=== PATIENT | female | born 1970 | race African-American/Black ===

== ENCOUNTER → 2017-03-06 | Outpatient (CLI) | payer MEDICAID ==
[~2017-03-06] MED LIST: ASPI-1159 PO; ATOR20TA PO; PLAVIX PO; RANI300T7 PO; REGADENOSON 0.4 MG/5 ML IV ONE
== END | disposition home or self-care (01) ==
LOC: NM 06:45
PROVIDERS: ATTEND Internal Medicine Cardiovascular Disease
DX: R07.9 Chest pain, unspecified (principal)
CPT/HCPCS: 78452; 93017; A9500; J2785

== ENCOUNTER 2018-06-08 07:18 | Day surgery (SDC) | payer MEDICAID ==
[~2018-06-08] VITALS: Ht 165.1 cm; Wt 88.5 kg
[~2018-06-08 07:18] MED LIST changes: -REGADENOSON 0.4 MG/5 ML IV ONE
[2018-06-08] MEDS ORDERED: AMLO5TAB88 MT (08:15)
[2018-06-08] MEDS ORDERED: CLON0.1T PO (08:15)
[2018-06-08] MEDS ORDERED: ISOS30TA6 MT (08:15)
[2018-06-08] MEDS ORDERED: TIOT18CA3 INH (08:15)
[2018-06-08] MEDS ORDERED: FLUT1BLS IH (08:15)
[2018-06-08] MEDS ORDERED: P20 PO (08:15)
[2018-06-08] MEDS ORDERED: METO-396 MT (08:15)
[2018-06-08 08:59] LABS: HEMATOCRIT 44.3 % (36.0-48.0); HEMOGLOBIN 15.1 g/dL (12.0-16.0); MEAN CORPUSCULAR HEMOGLOBIN 30.8 pg (28.0-32.0); MEAN CORPUSCULAR VOLUME 90.1 fL (81.0-99.0); PLATELET 223 x1000/uL (130-400); RED BLOOD CELL COUNT 4.91 mill/uL (4.2-5.4); RED CELL DISTRIBUTION WIDTH 13.8 % (11.6-14.6)
[2018-06-08 09:00] LABS: CHLORIDE 112 mEq/L (98-107)
[2018-06-08 09:04] LABS: PARTIAL THROMBOPLASTIN TIME 34.2 sec (23.4-31.0); PROTHROMBIN TIME 9.7 sec (9.1-11.1)
[2018-06-08] MEDS ORDERED: IODIXANOL 320MG/ML 100 ML BOTTLE IV ONE (09:13)
[2018-06-08] MEDS ORDERED: LIDOCAINE HCL 1% 20ML VIAL (Pyxis) INJ ONE ×2 (09:13→09:50)
[2018-06-08] MEDS ORDERED: MIDAZOLAM HCL 2 MG/2 ML VIAL ONE (09:24)
[2018-06-08] MEDS ORDERED: FENTANYL CITRATE/PF 50MCG/ML 2ML VIAL ONE (09:25)
[2018-06-08] MEDS ORDERED: ASPIRIN/SOD BICARB/CITRIC ACID 324MG TAB EFF ONE (09:31)
[2018-06-08] MEDS ORDERED: ACETAMINOPHEN 325MG TABLET PO PRN (10:15)
[2018-06-08] MEDS ORDERED: HEPARIN SODIUM 1,000 UNIT/1ML VIAL IV ONE (14:28)
[2018-06-08] MEDS ORDERED: NICARDIPINE 100MCG/ML 10ML VIAL (CATH LAB) IV ONE (15:25)
[2018-06-08] MEDS ORDERED: NITROGLYCERIN 50MCG/ML 10ML VIAL (CATH LAB) IV ONE (15:25)
== END 2018-06-08 16:40 | disposition home or self-care (01) ==
LOC: CCL 07:18
PROVIDERS: ATTEND Internal Medicine Cardiovascular Disease
DX: I25.119 Atherosclerotic heart disease of native coronary artery with unspecified angina pectoris (principal); E78.5 Hyperlipidemia, unspecified; F17.210 Nicotine dependence, cigarettes, uncomplicated; R06.02 Shortness of breath; J44.9 Chronic obstructive pulmonary disease, unspecified; I10 Essential (primary) hypertension; Z95.5 Presence of coronary angioplasty implant and graft; Z98.51 Tubal ligation status; Z98.890 Other specified postprocedural states; Z79.899 Other long term (current) drug therapy; Z79.82 Long term (current) use of aspirin
CPT/HCPCS: 36415; 80048; 85027; 85610; 85730; 93458; 99152; C1760; C1887; J1644; J2250; J3010; J3490; Q9967; C1769; C1893

== ENCOUNTER 2019-01-21 12:28 | Inpatient (IN) | payer MEDICAID ==
[~2019-01-21] VITALS: Ht 162.6 cm; Wt 90.7 kg
[~2019-01-21 12:28] MED LIST changes: +AMLO5TAB88 MT; -ASPI-1159 PO; +ASPI-1393 PO; +CLON0.1T PO; +FLUT1BLS IH; +ISOS30TA6 MT; +METO-396 MT; +P20 PO; +TIOT18CA3 INH
[2019-01-21] MEDS ORDERED: SODIUM CHLORIDE 0.9% 1,000 ML IV ONE (13:25)
[2019-01-21 13:45] LABS: BASOPHILS % 1.3 % (0.0-2.0); HEMATOCRIT. 43.6 % (36.0-48.0); HEMOGLOBIN. 14.7 g/dL (12.0-16.0); LYMPHOCYTES % 35.2 % (20.0-50.0); MEAN CORPUSCULAR HEMOGLOBIN 30.6 pg (28.0-32.0); MEAN CORPUSCULAR VOLUME 90.9 fL (81.0-99.0); MEAN PLATELET VOLUME 9.2 fl (7.4-10.4); MONOCYTES % 6.3 % (2.0-8.0); NEUTROPHILS % 54.2 % (40.0-76.0); PLATELET 237 x1000/uL (130-400); RED BLOOD CELL COUNT 4.79 mill/uL (4.2-5.4); RED CELL DISTRIBUTION WIDTH 13.6 % (11.6-14.6)
[2019-01-21 13:50] LABS: CLARITY URINE CLEAR (CLEAR); COLOR URINE YELLOW (YELLOW); KETONES URINE NEGATIVE (NEGATIVE); LEUKOCYTE ESTERASE URINE 1+ (NEGATIVE); NITRITE URINE NEGATIVE (NEGATIVE); OCCULT BLOOD URINE NEGATIVE (NEGATIVE); PH URINE 5.5 (4.5-8.0); PROTEIN URINE NEGATIVE (NEGATIVE); SPECIFIC GRAVITY URINE 1.016 (1.005-1.030)
[2019-01-21 13:54] LABS: CHLORIDE 109 mEq/L (98-107)
[2019-01-21 14:03] LABS: *AMPHETAMINES SCREEN URINE NEGATIVE (NEGATIVE); *BARBITURATES SCREEN URINE NEGATIVE (NEGATIVE); *BENZODIAZEPINES SCREEN URINE NEGATIVE (NEGATIVE); *COCAINE SCREEN URINE NEGATIVE (NEGATIVE); METHADONE URINE SCREEN NEGATIVE (NEGATIVE); OPIATES URINE SCREEN NEGATIVE (NEGATIVE)
[2019-01-21 14:05] LABS: PHENCYCLIDINE URINE SCREEN NEGATIVE (NEGATIVE)
[2019-01-21 14:06] LABS: CANNABINOID URINE SCREEN PRESUMTIVE POSITIVE (NEGATIVE)
[2019-01-21] MEDS ORDERED: IOHEXOL-300 100 ML BOTTLE ONE (14:42)
[2019-01-21] MEDS ORDERED: PIPERACILLIN/TAZ 3.375G PREMIX 50 ML IV ONE (15:30)
[2019-01-21] MEDS ORDERED: IPRATROPIUM/ALBUTEROL 0.5-3(2.5)MG/3ML NEB HHN PRN (17:15)
[2019-01-21] MEDS ORDERED: KETOROLAC 30MG/ML VIAL IV PRN (17:15)
[2019-01-21] MEDS ORDERED: ONDANSETRON HCL 4MG/2ML INJ IV PRN (17:15)
[2019-01-21] MEDS ORDERED: ACETAMINOPHEN 325MG TABLET PO PRN (17:15)
[2019-01-21] MEDS ORDERED: TRAZ-213 MT (18:26)
[2019-01-21] MEDS ORDERED: CITA20SO PO (18:26)
[2019-01-21] MEDS: CLINDAMYCIN 600MG PREMIX 50 ML IV SCH (19:50)
[2019-01-21] MEDS: DIPHENHYDRAMINE 25MG CAPSULE PO PRN (19:50)
[2019-01-21 20:00] VITALS: BP_SYST 116; BP_SYST 132; BP_DIAS 68; BP_DIAS 75
[2019-01-22] VITALS: BP 121/63
[2019-01-22 04:00] VITALS: BP 128/80
[2019-01-22] MEDS: CLINDAMYCIN 600MG PREMIX 50 ML IV SCH (05:10)
[2019-01-22] MEDS: DIPHENHYDRAMINE 25MG CAPSULE PO PRN (07:37)
[2019-01-22 07:48] LABS: BASOPHILS % 0.5 % (0.0-2.0); EOSINOPHILS % 4.7 % (0.0-5.0); HEMATOCRIT. 43.3 % (36.0-48.0); HEMOGLOBIN. 14.7 g/dL (12.0-16.0); LYMPHOCYTES % 34.1 % (20.0-50.0); MEAN CORPUSCULAR HEMOGLOBIN 30.6 pg (28.0-32.0); MEAN CORPUSCULAR VOLUME 89.8 fL (81.0-99.0); MEAN PLATELET VOLUME 9.4 fl (7.4-10.4); MONOCYTES % 7.5 % (2.0-8.0); NEUTROPHILS % 53.2 % (40.0-76.0); PLATELET 196 x1000/uL (130-400); RED BLOOD CELL COUNT 4.82 mill/uL (4.2-5.4)
[2019-01-22 07:58] LABS: CHLORIDE 109 mEq/L (98-107)
[2019-01-22 11:52] VITALS: BP 117/93
[2019-01-22 12:19] VITALS: BP 117/93
[2019-01-22] MEDS ORDERED: CLINDAMYCIN 600MG PREMIX 50 ML IV SCH (20:00)
== END 2019-01-22 12:10 | disposition home or self-care (01) | DRG 383 ==
LOC: ER 12:28 → 6EST 16:13 → EDBEDREQSVC 16:16 → EDBEDREQ 16:16 → EDBEDREQSVC 16:20 → ENRESERV 17:03
PROVIDERS: ADMIT Internal Medicine; ATTEND Internal Medicine
DX: L03.221 Cellulitis of neck (principal); E87.8 Other disorders of electrolyte and fluid balance, not elsewhere classified; E66.9 Obesity, unspecified; E78.00 Pure hypercholesterolemia, unspecified; E78.5 Hyperlipidemia, unspecified; F12.90 Cannabis use, unspecified, uncomplicated; F17.210 Nicotine dependence, cigarettes, uncomplicated; I10 Essential (primary) hypertension; I25.10 Atherosclerotic heart disease of native coronary artery without angina pectoris; R47.02 Dysphasia; J44.9 Chronic obstructive pulmonary disease, unspecified; R13.10 Dysphagia, unspecified; W57.XXXA Bitten or stung by nonvenomous insect and other nonvenomous arthropods, initial encounter; Z95.5 Presence of coronary angioplasty implant and graft; Z98.51 Tubal ligation status; Z71.6 Tobacco abuse counseling; Z71.3 Dietary counseling and surveillance; Y93.89 Activity, other specified; Y92.89 Other specified places as the place of occurrence of the external cause; Y99.8 Other external cause status; Z68.34 Body mass index [BMI] 34.0-34.9, adult
CPT/HCPCS: 36415; 70491; 71045; 80048; 80305; 81025; 83605; 83880; 84145; 84484; 87070; 93005; 93970; 96360; 96361; 99285; 99406; J2543; J3490; J7030; Q0163; Q9967

== ENCOUNTER 2020-01-27 16:21 | Emergency (ER) | payer MEDICAID ==
[~2020-01-27] VITALS: Ht 165.1 cm; Wt 70.0 kg
[~2020-01-27 16:21] MED LIST changes: -ASPI-1393 PO; +ASPI-1497 PO; +CITA20SO2 PO; -P20 PO; +TRAZ-252 MT
[2020-01-27] MEDS ORDERED: ACETAMINOPHEN 325MG TABLET PO ONE (17:30)
[2020-01-27 18:10] VITALS: BP 112/84
== END 2020-01-27 18:16 | disposition home or self-care (01) ==
LOC: ER 16:21
DX: M71.21 Synovial cyst of popliteal space [Baker], right knee (principal); I25.10 Atherosclerotic heart disease of native coronary artery without angina pectoris; E78.00 Pure hypercholesterolemia, unspecified; F12.10 Cannabis abuse, uncomplicated; J44.9 Chronic obstructive pulmonary disease, unspecified; Z98.51 Tubal ligation status; Z79.82 Long term (current) use of aspirin
CPT/HCPCS: 93970; 99284

== ENCOUNTER → 2020-12-04 | Day surgery (SDC) | payer MEDICAID ==
[~2020-12-04] VITALS: Ht 165.1 cm; Wt 89.4 kg
[~2020-12-04] MED LIST changes: +ACETAMINOPHEN 325MG TABLET PO ONE; +FENTANYL CITRATE/PF 50MCG/ML 2ML VIAL IV ONE; +FENTANYL CITRATE/PF 50MCG/ML 2ML VIAL ONE; +IODIXANOL 320MG/ML 100 ML BOTTLE IV ONE; +IOHEXOL-300 100 ML BOTTLE ONE; -ISOS30TA6 MT; +ISOS30TA91 MT; +LIDOCAINE HCL 1% 20ML VIAL (Pyxis) INJ ONE; +MIDAZOLAM HCL 2 MG/2 ML VIAL ONE
[2020-12-04 08:21] LABS: CHLORIDE 112 mEq/L (98-107)
[2020-12-04 08:23] LABS: BASOPHILS % 0.9 % (0.0-2.0); EOSINOPHILS % 2.8 % (0.0-5.0); HEMATOCRIT. 41.7 % (36.0-48.0); HEMOGLOBIN. 14.2 g/dL (12.0-16.0); LYMPHOCYTES % 33.3 % (20.0-50.0); MEAN CORPUSCULAR HEMOGLOBIN 30.7 pg (28.0-32.0); MEAN CORPUSCULAR VOLUME 90.1 fL (81.0-99.0); MEAN PLATELET VOLUME 9.4 fl (7.4-10.4); MONOCYTES % 7.9 % (2.0-8.0); NEUTROPHILS % 55.1 % (40.0-76.0); PLATELET 233 x1000/uL (130-400); RED BLOOD CELL COUNT 4.62 mill/uL (4.2-5.4); RED CELL DISTRIBUTION WIDTH 13.4 % (11.6-14.6)
[2020-12-04 08:28] LABS: INR 0.9; PROTHROMBIN TIME 9.8 sec (9.6-11.0)
== END | disposition home or self-care (01) ==
LOC: CCL 06:40
PROVIDERS: ATTEND Internal Medicine Cardiovascular Disease
DX: I25.10 Atherosclerotic heart disease of native coronary artery without angina pectoris (principal); F17.210 Nicotine dependence, cigarettes, uncomplicated; Z79.899 Other long term (current) drug therapy; Z79.82 Long term (current) use of aspirin; Z95.5 Presence of coronary angioplasty implant and graft; Z98.890 Other specified postprocedural states; Z82.49 Family history of ischemic heart disease and other diseases of the circulatory system; Z72.89 Other problems related to lifestyle; Z20.822 Contact with and (suspected) exposure to COVID-19
CPT/HCPCS: 36415; 80053; 85025; 85610; 87426; 93458; C1760; C1769; C1887; C1893; J1644; J2250; J3010; J3490; Q9967

== ENCOUNTER 2023-01-02 10:07 | Emergency (ER) | payer MEDICAID, OTHER ==
[~2023-01-02] VITALS: Ht 165.1 cm; Wt 88.0 kg
[~2023-01-02 10:07] MED LIST changes: -ACETAMINOPHEN 325MG TABLET PO ONE; -FENTANYL CITRATE/PF 50MCG/ML 2ML VIAL IV ONE; -FENTANYL CITRATE/PF 50MCG/ML 2ML VIAL ONE; -IODIXANOL 320MG/ML 100 ML BOTTLE IV ONE; -IOHEXOL-300 100 ML BOTTLE ONE; -LIDOCAINE HCL 1% 20ML VIAL (Pyxis) INJ ONE; -MIDAZOLAM HCL 2 MG/2 ML VIAL ONE
[2023-01-02 10:11] VITALS: BP 173/103
[2023-01-02] MEDS ORDERED: ACETAMINOPHEN 325MG TABLET PO ONE (10:30)
[2023-01-02] MEDS ORDERED: IBUP-2029 MT (12:06)
[2023-01-02] MEDS ORDERED: KETOROLAC 60MG/2ML VIAL IM ONE (12:15)
== END 2023-01-02 12:33 | disposition home or self-care (01) ==
LOC: ER 10:07
DX: S09.90XA Unspecified injury of head, initial encounter (principal); S60.012A Contusion of left thumb without damage to nail, initial encounter; S80.01XA Contusion of right knee, initial encounter; W18.39XA Other fall on same level, initial encounter; Y93.89 Activity, other specified; Y92.89 Other specified places as the place of occurrence of the external cause; Y99.8 Other external cause status; I25.10 Atherosclerotic heart disease of native coronary artery without angina pectoris; J44.9 Chronic obstructive pulmonary disease, unspecified; E78.00 Pure hypercholesterolemia, unspecified; I10 Essential (primary) hypertension; Z98.51 Tubal ligation status; F12.10 Cannabis abuse, uncomplicated; Z79.899 Other long term (current) drug therapy
CPT/HCPCS: 70450; 73140; 73562; 81025; 96372; 99285; J1885; Z7610

== ENCOUNTER 2024-10-04 18:09 | Emergency (ER) | payer MEDICAID ==
[~2024-10-04] VITALS: Ht 165.1 cm; Wt 85.8 kg
[~2024-10-04 18:09] MED LIST changes: +IBUP-2029 MT
[2024-10-04 18:13] VITALS: O2SAT 98
[2024-10-04 18:15] VITALS: BP 119/86; PULSE 86; RESP 16; TEMP 37.2; O2SAT 100
[2024-10-04 20:27] LABS: BASOPHILS % 0.3 % (0.0-2.0); DIFFERENTIAL COMMENT 0; EOSINOPHILS % 1.7 % (0.0-5.0); HEMATOCRIT. 44.1 % (36.0-48.0); HEMOGLOBIN. 14.8 g/dL (12.0-16.0); LYMPHOCYTES % 52.5 % (20.0-50.0); MEAN CORPUSCULAR HEMOGLOBIN 31.1 pg (28.0-32.0); MEAN CORPUSCULAR HGB CONC 33.7 g/dL (31.0-37.0); MEAN CORPUSCULAR VOLUME 92.4 fL (81.0-99.0); MEAN PLATELET VOLUME 9.6 fl (7.4-10.4); MONOCYTES % 7.1 % (2.0-8.0); NEUTROPHILS % 38.4 % (40.0-76.0); PLATELET 266 x1000/uL (130-400); RED BLOOD CELL COUNT 4.77 mill/uL (4.2-5.4); RED CELL DISTRIBUTION WIDTH 13.7 % (11.6-14.6); WHITE BLOOD COUNT 6.9 x1000/uL (4.5-11.0)
[2024-10-04 20:36] LABS: CHLORIDE 111 mEq/L (98-107); POTASSIUM 4.2 mEq/L (3.5-5.1); SODIUM 144 mEq/L (136-145)
[2024-10-04 20:37] LABS: CALCIUM 9.4 mg/dL (8.7-10.4); CARBON DIOXIDE 25 mEq/L (21-32)
[2024-10-04 20:41] LABS: CREATININE 0.8 mg/dL (0.6-1.0)
[2024-10-04 20:42] LABS: GLUCOSE 99 mg/dL (70-105); UREA NITROGEN BLOOD 11 mg/dL (9-23)
[2024-10-04 20:50] LABS: TROPONIN I HIGH SENSITIVITY < 4 ng/L (3.0-34)
[2024-10-04] MEDS: ONDANSETRON HCL 4MG TABLET PO ONE (22:45)
[2024-10-04] MEDS: KETOROLAC 15MG/ML VIAL IM ONE (23:56)
[2024-10-05] MEDS: LIDOCAINE 5% PATCH TOP SCH (01:01)
[2024-10-05] MEDS ORDERED: LIDO700A15 TP (01:23)
[2024-10-05] MEDS ORDERED: NAPR-1176 MT (01:23)
== END 2024-10-05 01:40 | disposition home or self-care (01) ==
LOC: ER 18:09
DX: R07.89 Other chest pain (principal); N64.4 Mastodynia; E78.00 Pure hypercholesterolemia, unspecified; I10 Essential (primary) hypertension; I25.10 Atherosclerotic heart disease of native coronary artery without angina pectoris; I26.99 Other pulmonary embolism without acute cor pulmonale; F12.90 Cannabis use, unspecified, uncomplicated; J44.9 Chronic obstructive pulmonary disease, unspecified; Z79.1 Long term (current) use of non-steroidal anti-inflammatories (NSAID); Z79.51 Long term (current) use of inhaled steroids; Z79.82 Long term (current) use of aspirin; Z79.899 Other long term (current) drug therapy; Z98.51 Tubal ligation status
CPT/HCPCS: 99285; 71045; 80048; 85025; 85379; 84484; 36415; 76641; 93005; 96372; J1885; Q0162